=== PATIENT | female | born 1965 | race Caucasian/White ===

== ENCOUNTER 2017-01-30 11:54 | Emergency (ER) | payer BC ==
[2017-01-30 12:04] VITALS: O2SAT 98
[2017-01-30] MEDS ORDERED: XYLOCAINE 2% HCL 20 ML MDV ONE (12:05)
[2017-01-30] MEDS ORDERED: Adacel Vial IM ONE ×2 (12:11→12:23)
[2017-01-30] MEDS ORDERED: Norco 10/325 MG Tablet PO ONE (12:11)
[2017-01-30] MEDS ORDERED: Norco 10/325 MG Tablet ONE (12:20)
--- NOTE | 2017-01-30 12:22 | ERPHSYRPT ---
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 laceration to both sides of medial lt thumb. bleeding controlled. good sensation. radial pulse present. Physician History: PATIENT CLOSED HER LEFT THUMB INTO DOOR TODAY SUSTAINED INJURY WITH LACERATIONS TO LEFT THUMB. PATIENT COMPLAINS OF SEVERE PAIN DISCOMFORT. DENIES BRUISING OR DEFORMITY. Occurred: just prior to arrival Method of Injury: direct blow Quality: constant Severity of Pain-Max: severe Severity of Pain-Current: severe Extremities Pain Location: thumb: left Modifying Factors: Improves With: movement Associated Symptoms: other (LACERATIONS) Allergies/Adverse Reactions: No Known Drug Allergies Allergy (Verified 01/30/17 12:04) Home Medications: Venlafaxine HCl ER 75 mg [Effexor XR 75 MG] 75 mg PO DAILY 03/13/15 [ History] Hx Tetanus, Diphtheria Vaccination/Date Given: No Hx Influenza Vaccination/Date Given: No Hx Pneumococcal Vaccination/Date Given: No Immunizations Up to Date: No - Review of Systems Musculoskeletal: Injury, Joint Pain, Joint Swelling Neurological: No Symptoms - Past Medical History Pertinent Past Medical History: Yes Neurological History: No Pertinent History ENT History: No Pertinent History Cardiac History: No Pertinent History Respiratory History: No Pertinent History Endocrine Medical History: No Pertinent History Musculoskeletal History: No Pertinent History GI Medical History: No Pertinent History History: No Pertinent History Psycho-Social History: Anxiety Female Reproductive Disorders: Other Other Medical History: uterine problems, cyst on ovaries, fallopian tubes full of fluid. - Past Surgical History Past Surgical History: Yes Neuro Surgical History: No Pertinent History Cardiac: No Pertinent History Respiratory: No Pertinent History Gastrointestinal: Exploratory Laparoscopy Genitourinary: No Pertinent History Musculoskeletal: No Pertinent History Female Surgical History: Hysterectomy, Other Other Surgical History: Pt has all removed except L ovary. exploratory lap related to female problems - Social History Smoking Status: Former smoker How long have you smoked: 34 yrs Exposure to second hand smoke: No Drug Use: none Patient Lives Alone: No - Nursing Vital Signs Nursing Vital Signs: Initial Vital Signs Temperature 99.2 F Temperature Source Oral Pulse Rate 79 Respiratory Rate 18 Pain Intensity 10 - Physical Exam General Appearance: mild distress, alert Eyes, Ears, Nose, Throat Exam: moist mucous membranes Neck Exam: non-tender, supple Abdominal Exam: No guarding Back Exam: No vertebral tenderness Hand Exam: soft tissue tenderness (LEFT THUMB, THERE IS A 1.2 CM LACERATION PROXIMAL PHALANGX, VOLAR RADIAL ASPECT AND 4MM LACERATION DIP JOINT DORSUM. THERE IS FULL RANGE OF MOTION DIP AND MCP JOINT, NO TENDON INVOLVEMENT, OR EVIDENCE OF FOREIGN BODIES) Neuro/Tendon Exam: normal sensation, normal motor functions Mental Status Exam: alert, oriented x 3, cooperative Skin Exam: normal color, warm, dry SpO2 Interpretation: normal SpO2: 98 Oxygen Delivery: Room Air Procedures - Laceration/Wound Repair Left Other Wound Location: Left (thumb) Wound Length (cm): 1.6 Wound's Depth, Shape: linear, into subcut Wound Explored: clean Irrigated: Yes Hibiclens Prep: Yes Anesthesia: digital block, 2% Lidocaine Volume Anesthetic (ccs): 4 Wound Repaired With: sutures Suture Size/Type: 4-0 Number of Sutures: 5 Layer Closure?: No Type of Splint Applied: aluminum - Radiology Exams Left Hand X-ray Interpretation: Interpreted by me, No Fracture, No Subluxation Ordered Tests: Active Orders 24 hr Category Date Time Status Splint STAT Care 01/30/17 12:48 Active HAND (MINIMUM 3 VIEWS) Stat Exams 01/30/17 12:12 Completed Medication Summary Discontinued Medications Generic Name Dose Route Start Last Admin Trade Name Andi PRN Reason Stop Dose Admin Acetaminophen/Hydrocodone Bitart 1 tab 01/30/17 12:11 01/30/17 12:22 Paragould 10/325 Mg Tablet PO 01/30/17 12:12 1 tab STAT ONE Administration Acetaminophen/Hydrocodone Bitart Confirm 01/30/17 12:20 [place] 10/325 Mg Tablet Administered 01/30/17 12:21 Dose 1 tab .ROUTE .STK-MED ONE Diphtheria/Tetanus/Acell Pertussis 0.5 ml 01/30/17 12:11 01/30/17 12:22 Adacel Vial IM 01/30/17 12:12 0.5 ml .ONCE ONE Administration Diphtheria/Tetanus/Acell Pertussis Confirm 01/30/17 12:23 Adacel Vial Administered 01/30/17 12:24 Dose 0.5 ml IM .STK-MED ONE Lidocaine HCl Confirm 01/30/17 12:05 Xylocaine 2% Hcl 20 Ml Mdv Administered 01/30/17 12:06 Dose 5 ml .ROUTE .STK-MED ONE Lidocaine HCl 4 ml 01/30/17 12:51 Xylocaine 2% Hcl 20 Ml Mdv IJ 01/30/17 12:52 STAT ONE - Progress Progress: pain not gone completely Progress Note: 01/30/17 12:40 TETNUS T DAP 0.5MG IM, NORCO 10/325 ORALLY 01/30/17 12:42 ALUMINUM FORM SPLINT BELOW THUMB Counseled pt/family regarding: diagnosis, need for follow-up, rad results - Departure Time of Disposition: 13:00 Departure Disposition: Home Clinical Impression: CONTUSION/LACERATION LEFT THUMB Condition: Stable Critical Care Time: No Referrals: REJI KAUR MD [Primary Care Provider] - Additional Instructions: MAINTAIN SPLINT BELOW LEFT THUMB UNTIL STITCHES REMOVED AT 10 DAYS. MAY REMOVE SPLINT DAILY TO CLEAN WOUNDS WITH SOAP AND WATER 3-4 TIMES DAILY. WATCH FOR SIGNS OF INFECTION, REDNESS, DRAINAGE OR SWELLING. NORCO 10/325 EVERY 4 HOURS FOR PAIN. ANTIBIOTIC KEFLEX 500MG EVERY 8 HOURS FOR 10 DAYS. Prescriptions: Hydrocodone/APAP 10/325 mg [Paragould 10/325 MG Tablet] 1 tab PO Q4H PRN PRN # 15 tablet PRN Reason: Pain Cephalexin Mh 500 mg [Keflex 500 mg] 500 mg PO TID #30 capsule
--- NOTE | 2017-01-30 12:37 | XRAY ---
Indication: Thumb pain following injury. Comparison: None 3 views of the left hand demonstrates mild degenerative changes of all DIP joints. No other bony, articular, or soft tissue abnormalities.
[2017-01-30] MEDS ORDERED: XYLOCAINE 2% HCL 20 ML MDV IJ ONE (12:51)
[2017-01-30 13:08] VITALS: BP 158/78; PULSE 88
== END 2017-01-30 13:05 | disposition home or self-care (01) ==
LOC: ED 11:54
PROC: 0HQGXZZ Repair Left Hand Skin, External Approach (ICD-10-PCS; principal; 2017-01-30)
DX: S61.012A Laceration without foreign body of left thumb without damage to nail, initial encounter (principal); W23.0XXA Caught, crushed, jammed, or pinched between moving objects, initial encounter
CPT/HCPCS: 12001; 73130; 90715; 99282

== ENCOUNTER 2020-07-10 09:45 | Day surgery (SDC) | payer BC ==
--- NOTE | 2020-07-07 13:37 | HP ---
DATE OF SURGERY: 07/10/2020 HISTORY OF PRESENT ILLNESS: The patient is a 55 year old with three week history of some lower abdominal pain, had some diarrhea. CT scan mild diverticulitis. No vomiting. Slight nausea. No bloody stools. Family history no colon cancer. No ulcerative colitis or inflammatory bowel disease. She has history of diverticulitis. Recently she had gallstones and in need of cholecystectomy for chronic cholecystitis and cholelithiasis. She prefers to go ahead and proceed with colonoscopy first. PAST MEDICAL HISTORY: Hypertension, some anxiety. PAST SURGICAL HISTORY: Hysterectomy. Colonoscopy five years ago. MEDICATIONS: BuSpar, Lisinopril, hydrochlorothiazide, Effexor. ALLERGIES: NKDA. FAMILY HISTORY: As mentioned above. SOCIAL HISTORY: Half pack per day smoker, denies alcohol abuse. REVIEW OF SYSTEMS: Fourteen systems reviewed. No chest pain or palpitations. Other systems negative or noncontributory as above and per preadmission questionnaire. PHYSICAL EXAMINATION: GENERAL: No acute distress. HEENT: Sclerae nonicteric. NECK: No JVD. CHEST: Equal excursion, nonlabored breathing. CVS: Regular rate and rhythm. ABDOMEN: Soft. No peritoneal signs. EXTREMITIES: No significant edema. NEURO: Alert, oriented, moving extremities symmetrically. No gross motor deficits noted. RECTAL: Deferred timed to endoscopy exam. PSYCH: Appropriate mood and affect. SKIN: Dry, intact. IMPRESSION: History of some lower abdominal pain, diverticulitis, in need of follow up colonoscopy for further evaluation to rule out neoplasia, colitis or other etiology. General risk of bleeding or infection, risk of bowel injury or perforation possibly requiring open procedure, risk of missed or nondiagnosis or incomplete exam possibly requiring barium enema, other studies or procedures, general risk of anesthesia or sedation, risk of bowel prep but not limited to, consent was obtained. Will proceed with outpatient colonoscopy and at a later date for gallstones will set her up for cholecystectomy at a later date.
[2020-07-10] MEDS: Lactated Ringers 1,000 ML IV SCH ×2 (10:14→11:45)
[2020-07-10] MEDS ORDERED: DIPRIVAN 200 MG/20 ML IV ONE (11:40)
[2020-07-10] MEDS ORDERED: Ketamine HCl 50 MG/ML ONE (11:40)
[2020-07-10] MEDS ORDERED: Lactated Ringers 1,000 ML IV ONE (11:41)
[2020-07-10] MEDS ORDERED: Xylocaine-Mpf 2% 5 Ml Vial ONE (11:52)
[2020-07-10 12:48] VITALS: BP 135/92; PULSE 83; O2SAT 100
--- NOTE | 2020-07-11 10:26 | OP ---
SURGERY DATE/TIME: 07/10/2020 1145 PREOPERATIVE DIAGNOSES: 1) History of diverticulitis, need for screening colonoscopy. 2) History of gallstones, cholelithiasis, chronic cholecystitis. POSTOPERATIVE DIAGNOSES: 1) Mild diverticulosis. 2) Fair bowel prep. 3) Small patchy area of inflammation fold sigmoid colon, path pending. 4) Small internal and external hemorrhoids. 5) Fair bowel prep. 6) ASA Class II. 7) Withdrawal time eight minutes. 8) Cecum and ileocecal valve area photo documented. PROCEDURES: Colonoscopy to cecum with some hot biopsy of patchy area of inflammation in sigmoid colon fold. SURGEON: Dr. Alexandre Burt. ANESTHESIA: MAC. ESTIMATED BLOOD LOSS: Minimal. INDICATIONS: As noted above. Risks and benefits explained in detail but not limited to and consent obtained. DESCRIPTION OF PROCEDURE AND FINDINGS: The patient is taken to the operating room. MAC anesthesia induced. After official time out and no disagreement with planned procedure, digital rectal exam revealed small internal and external hemorrhoids. No palpable digital rectal masses. Video colonoscope inserted and passed up through the tortuous sigmoid, descending, transverse and ascending colon. The patient was doing a large amount of coughing during the procedure. With external pressure the scope was able to be passed around to the cecum which was well visualized. The ileocecal valve was photo documented. Palpation right lower quadrant confirmed the location. Scope slowly and carefully withdrawn over the next eight minutes. No signs of any large polyps, masses or obstructing lesion. She did have small diverticula in the left colon. She did have patchy area and some erythema on a hold. Whether this was simple prep irritation or patchy area of colitis this was biopsied as it was quite friable, hot biopsy with brief bursts of cautery. Good hemostasis noted. Otherwise she had some small internal and external hemorrhoids. There were no signs of any large polyps, masses or obstructing lesions. The patient tolerated the procedure well. There were no immediate complications. There was no family here to discuss the findings with.
== END 2020-07-10 12:55 | disposition home or self-care (01) ==
LOC: SDC 09:45
PROVIDERS: ATTEND Surgery
DX: Z12.11 Encounter for screening for malignant neoplasm of colon (principal); K57.32 Diverticulitis of large intestine without perforation or abscess without bleeding; K64.4 Residual hemorrhoidal skin tags; K64.8 Other hemorrhoids; I10 Essential (primary) hypertension; F41.9 Anxiety disorder, unspecified; Z79.899 Other long term (current) drug therapy
CPT/HCPCS: 93005; J2704

== ENCOUNTER 2020-07-17 11:24 | Day surgery (SDC) | payer BC ==
--- NOTE | 2020-07-17 07:42 | HP ---
DATE OF SURGERY: 07/17/2020 HISTORY OF PRESENT ILLNESS: The patient is a 55 year old who had cholelithiasis. I feel she has chronic cholecystitis. I feel she will benefit from cholecystectomy. Risks and benefits explained in detail but not limited to. PAST MEDICAL HISTORY: Hypertension, anxiety. PAST SURGICAL HISTORY: Hysterectomy and colonoscopy in the past. MEDICATIONS: Lisinopril, BuSpar, Effexor. ALLERGIES: NKDA. FAMILY HISTORY: Negative in regards to this problem. SOCIAL HISTORY: Half pack per day smoker, denies alcohol abuse. REVIEW OF SYSTEMS: Fourteen systems reviewed. No chest pain or palpitations. Other systems negative or noncontributory as above and per preadmission questionnaire. PHYSICAL EXAMINATION: GENERAL: No acute distress. HEENT: Sclerae nonicteric. NECK: No JVD. CHEST: Equal excursion, nonlabored breathing. CVS: Regular rate and rhythm. ABDOMEN: Soft. No peritoneal signs. EXTREMITIES: No significant edema. NEURO: Alert, oriented, moving extremities symmetrically. No gross motor deficits noted. RECTAL: Deferred timed to endoscopy exam. PSYCH: Appropriate mood and affect. IMPRESSION: Chronic cholecystitis. I feel the patient will benefit from cholecystectomy. Risks and benefits explained in detail including but not limited to bleeding or infection, risk of trocar injury or hernia, risk of bowel, bladder or blood vessel injury, small risk of bile leak, bile duct injury, retained stone or sludge possibly requiring further procedure either open or ERCP, general risk of anesthesia, deep venous thrombosis, pulmonary embolism, pneumonia, perioperative risk of aches, pains, bloating, constipation and/or loose stools but not limited to, consent obtained. She understands and agrees to the planned procedure, will proceed with laparoscopic cholecystectomy with possible open.
[~2020-07-17 11:24] MED LIST: Lactated Ringers 1,000 ML IV ONE; Lactated Ringers 1,000 ML IV SCH; Sensorcaine 0.25% 10 ML ONE
[2020-07-17] MEDS ORDERED: Lactated Ringers 1,000 ML IV ONE (11:40)
[2020-07-17] MEDS ORDERED: MEFOXIN 2 GM PREMIX** 2 GM/50 ML ML IV SCH (12:00)
[2020-07-17] MEDS ORDERED: SUBLIMAZE 250 MCG/5 ML ONE (13:09)
[2020-07-17] MEDS ORDERED: Versed 2 MG/2 ML Injection ONE (13:09)
[2020-07-17] MEDS ORDERED: Quelicin Fliptop 200 MG/10 ML ONE (13:09)
[2020-07-17] MEDS ORDERED: DIPRIVAN 200 MG/20 ML IV ONE (13:09)
[2020-07-17] MEDS ORDERED: Zemuron 100 MG/10 ML ONE (13:09)
[2020-07-17] MEDS ORDERED: BREVIBLOC 100 MG/10 ML IV ONE (13:26)
[2020-07-17] MEDS ORDERED: SUBLIMAZE 100 MCG/2 ML ONE (13:30)
[2020-07-17] MEDS ORDERED: LOPRESSOR 5 MG/5 ML INJECTION IV ONE (13:32)
[2020-07-17] MEDS ORDERED: BRIDION 200MG/2ML IV ONE (13:36)
[2020-07-17] MEDS ORDERED: Xopenex 1.25 MG/0.5 ML UD NEBULE IH ONE ×2 (14:22→14:24)
[2020-07-17] MEDS ORDERED: Sodium Chloride 3 ML UD NEBULES IH ONE ×2 (14:22→14:25)
[2020-07-17] MEDS ORDERED: Zofran 4 MG/2 ML VIAL IV STA (15:03)
[2020-07-17 15:39] VITALS: BP 159/86; PULSE 73; O2SAT 99
--- NOTE | 2020-07-18 10:45 | OP ---
SURGERY DATE/TIME: 07/17/2020 1303 PREOPERATIVE DIAGNOSIS: Symptomatic cholelithiasis, chronic cholecystitis. POSTOPERATIVE DIAGNOSIS: Symptomatic cholelithiasis, chronic cholecystitis. PROCEDURE: Laparoscopic cholecystectomy. SURGEON: Dr. Alexandre Burt. ANESTHESIA: General. ESTIMATED BLOOD LOSS: Minimal. INDICATIONS: As noted above. Risks and benefits explained in detail but not limited to and consent obtained. DESCRIPTION OF PROCEDURE AND FINDINGS: The patient was taken to the operating room. General anesthesia induced. Abdomen prepped and draped in the usual sterile fashion. After official time out and no disagreement with planned procedure, a transverse incision made at the supraumbilical area. Fascia grasped and pulled upward. Veress needle inserted and tested with saline. Pneumoperitoneum accomplished insufflating opening pressure of 0-15. A 5 mm bladeless port and camera inserted without difficulty followed by two - 5 mm right upper quadrant ports and 5 mm epigastric port. The gallbladder grasped retracted over the edge of the liver dissecting posterior, lateral to anterior fashion. It had extensive chronic inflammatory reaction. The cystic duct and infundibular junction slowly and carefully well skeletonized until the critical view obtained both anteriorly and posteriorly. Cystic duct and cystic artery clipped x3 and divided in usual fashion. Gallbladder slowly and carefully dissected free from its dense attachments to liver bed. It was quite vascular requiring clipping additional oozing side branches off the cystic artery as necessary, some pulsatile oozing right on the gallbladder wall. This took some time but slowly and carefully accomplished. Just prior to releasing from final attachments to the anterior edge of the liver, the liver bed re-inspected. Clips noted in place cystic duct and cystic artery stumps. No signs of any active bleeding or bile leakage. Gallbladder released from final attachments to anterior edge of the liver, placed in the provided sac pulled free and passed off. Given the type of sac, it took some time but finally the gallbladder mobilized. It was opened outside the skin. It was then carefully released. A little bit of stones are crushed up allowing the bag and gallbladder to be pulled free and passed off. Liver bed re-inspected one last time. Clips noted in place cystic duct and cystic artery stump. No signs of any active bleeding or bile leakage. It was felt there was no benefit from drain placement. The fascia defect 10 site was closed with puncture closure device with #1 Vicryl. Pneumoperitoneum decompressed. The wound irrigated out. Skin incision closed with 4-0 Vicryl. 0.25% Marcaine local injected along the skin incision fascial defect at the beginning of the procedure. Steri-Strips and sterile dressing applied. There were no immediate complications.
== END 2020-07-17 15:50 | disposition home or self-care (01) ==
LOC: SDC 11:24
PROVIDERS: ATTEND Surgery
DX: K80.10 Calculus of gallbladder with chronic cholecystitis without obstruction (principal); I10 Essential (primary) hypertension; F41.9 Anxiety disorder, unspecified; Z79.899 Other long term (current) drug therapy
CPT/HCPCS: 94640; J0330; J0694; J2250; J2405; J2704; J3010; A9270-GY